=== PATIENT | male | born 1950 | race Caucasian/White ===

== ENCOUNTER 2019-11-14 18:46 | Observation (INO) ==
[2019-11-14] MEDS ORDERED: Aspirin 81 MG TAB.CHEW PO ONE (19:31)
[2019-11-14 20:02] LABS: Basophils # 0.1 K/mcL (0.0-0.2); Basophils % 0.9 %; Eosinophils # 0.5 K/mcL (0.0-0.6); Eosinophils % 6.1 %; Hematocrit 44.8 % (37.5-50.1); Hemoglobin 14.6 g/dL (12.9-16.9); Immature Granulocytes % 0.2 % (0-4); Lymphocytes # 2.9 K/mcL (0.6-4.6); Mean Corpuscular HGB Conc 32.6 g/dL (31.6-35.5); Mean Corpuscular Hemoglobin 30.5 pg (28.0-33.3); Mean Corpuscular Volume 93.7 fL (83.0-100.0); Mean Platelet Volume 8.8 fL (9.4-12.4); Monocytes % 11.1 %; Neutrophils # 4.2 K/mcL (1.6-8.9); Platelet Count 238 K/mcL (140-400); Red Blood Count 4.78 M/mcL (4.19-5.50); Red Cell Distribution Width 12.5 % (11.5-14.5); Segmented Neutrophils % 48.7 %; White Blood Count 8.7 K/mcL (4.3-11.1)
[2019-11-14 20:10] LABS: Prothrombin Time 11.5 Seconds (9.4-12.1)
[2019-11-14 20:13] LABS: Activated Partial Thrombo Time 28.1 Seconds (26.0-36.0); D-Dimer < 215 ng/mLFEU (0-500)
[2019-11-14] MEDS: Nitroglycerin 0.4 MG TAB.SUBL SL PRN ×4 (20:18→21:45)
[2019-11-14 20:26] LABS: BUN/Creatinine Ratio 12 (6-26); Blood Urea Nitrogen 11 mg/dL (8-23); Calcium 9.5 mg/dL (8.6-10.3); Carbon Dioxide 30 mEq/L (23-29); Chloride 104 mEq/L (98-107); Glucose 109 mg/dL (70-105); Osmolality,Calculated 288 (280-300); Potassium 4.3 mEq/L (3.5-5.1); Sodium 139 mEq/L (136-145); eGFR For African Americans > 60 (> 60); eGFR For Non-African Americans > 60 (> 60)
[2019-11-14 20:27] LABS: Troponin I < 0.03 ng/mL (< 0.04)
[2019-11-14] MEDS ORDERED: Naloxone 0.4 MG/ML INJ IVP PRN (20:58)
[2019-11-14] MEDS ORDERED: Ondansetron 4 MG/2 ML VIAL IVP PRN (20:58)
[2019-11-14] MEDS: Famotidine 20 MG TABLET PO SCH (23:08)
[2019-11-14] MEDS: Gabapentin 300 MG CAPSULE PO SCH (23:09)
[2019-11-14] MEDS: ALPRAZolam 0.5 MG TABLET PO SCH (23:09)
[2019-11-15 04:34] LABS: Hematocrit 41.3 % (37.5-50.1); Hemoglobin 13.7 g/dL (12.9-16.9); Mean Corpuscular HGB Conc 33.2 g/dL (31.6-35.5); Mean Corpuscular Hemoglobin 30.9 pg (28.0-33.3); Mean Corpuscular Volume 93.2 fL (83.0-100.0); Mean Platelet Volume 8.9 fL (9.4-12.4); Platelet Count 222 K/mcL (140-400); Red Blood Count 4.43 M/mcL (4.19-5.50); Red Cell Distribution Width 12.5 % (11.5-14.5); White Blood Count 9.8 K/mcL (4.3-11.1)
[2019-11-15 04:53] LABS: BUN/Creatinine Ratio 16 (6-26); Blood Urea Nitrogen 12 mg/dL (8-23); Calcium 8.9 mg/dL (8.6-10.3); Carbon Dioxide 27 mEq/L (23-29); Chloride 106 mEq/L (98-107); Cholesterol 158 mg/dL (< 200); Glucose 97 mg/dL (70-105); HDL Cholesterol 40 mg/dL (40-59); LDL Cholesterol,Calculated 64 mg/dL (0-99); Osmolality,Calculated 290 (280-300); Potassium 4.2 mEq/L (3.5-5.1); Sodium 140 mEq/L (136-145); Triglycerides 271 mg/dL (< 150); eGFR For African Americans > 60 (> 60); eGFR For Non-African Americans > 60 (> 60)
[2019-11-15] MEDS ORDERED: Regadenoson 0.4 MG/5 ML SYRINGE IVP ONE ×2 (11:42→11:52)
[2019-11-15] MEDS: (Linaclotide [Linzess] 290 MCG) PO SCH (13:33)
[2019-11-15] MEDS: Famotidine 20 MG TABLET PO SCH ×2 (13:33→21:35)
[2019-11-15] MEDS: Aspirin 81 MG TAB.CHEW PO SCH (13:33)
[2019-11-15] MEDS: lisinopriL 5 MG TABLET PO SCH (13:33)
[2019-11-15] MEDS: ALPRAZolam 0.5 MG TABLET PO SCH ×2 (13:33→21:35)
[2019-11-15] MEDS ORDERED: Isovue-370 500 ML BOTTLE IVP ONE (15:31)
[2019-11-15] MEDS ORDERED: predniSONE 20 MG TABLET PO SCH (15:45)
[2019-11-15] MEDS ORDERED: Acetaminophen 325 MG TABLET PO PRN (18:28)
[2019-11-15] MEDS: Gabapentin 300 MG CAPSULE PO SCH (21:35)
[2019-11-16] MEDS: ALPRAZolam 0.5 MG TABLET PO SCH (08:14)
[2019-11-16] MEDS: lisinopriL 5 MG TABLET PO SCH (08:14)
[2019-11-16] MEDS: Famotidine 20 MG TABLET PO SCH (08:14)
[2019-11-16] MEDS: Aspirin 81 MG TAB.CHEW PO SCH (08:14)
[2019-11-16] MEDS: (Linaclotide [Linzess] 290 MCG) PO SCH (08:15)
[2019-11-16 09:03] VITALS: BP 103/66
[2019-11-24 18:28] LABS: Alpha 2 Globulin (PEP) 1.07 g/dL (0.48-1.05); Beta Globulin (PEP) 0.89 g/dL (0.48-1.10)
[2019-11-25 07:29] LABS: IFE Reflexed IFE Done; Immunoglobulin A 364 mg/dL (68-408); Immunoglobulin G 1070 mg/dL (768-1632); Immunoglobulin M 50 mg/dL (35-263)
== END 2019-11-16 10:56 | disposition home or self-care (01) ==
LOC: CDU 18:46 → EMEROOARM 18:46 → CDU 22:15 → 3BNU 11-15 14:26
PROVIDERS: ADMIT Student in an Organized Health Care Education/Training Program; ATTEND Student in an Organized Health Care Education/Training Program